=== PATIENT | male | born 1955 | race Caucasian/White ===

== ENCOUNTER 2019-06-11 09:35 | Day surgery (SDC) | payer OTHER ==
[2019-05-28 16:10] VITALS: BMI 28.7
[2019-06-11] MEDS ORDERED: MIDAZOLAM HCL 2 MG/2 ML SINGLE DOSE VIAL ONE (11:01)
[2019-06-11] MEDS ORDERED: ROPIVACAINE HCL 0.5% 30ML VIAL ONE (11:01)
[2019-06-11] MEDS ORDERED: BUPIVACAINE HCL 0.25% 125 MG/50 ML VIAL ONE (11:02)
[2019-06-11] MEDS ORDERED: ROCURONIUM BROMIDE 50 MG/5 ML SYRINGE ONE (11:17)
[2019-06-11] MEDS ORDERED: SUCCINYLCHOLINE CHLORIDE 200 MG/10 ML SYRINGE ONE (11:17)
[2019-06-11] MEDS ORDERED: PROPOFOL 20 ML ONE ×3 (11:51→12:37)
[2019-06-11] MEDS ORDERED: ACETAMINOPHEN 325 MG TABLET (FP) PO PRN (14:28)
[2019-06-11] MEDS ORDERED: ONDANSETRON 4 MG/2 ML VIAL IVPUSH PRN (14:28)
[2019-06-11 15:38] VITALS: BP 145/75; PULSE 61; TEMP 97.5
--- NOTE | 2019-06-12 14:10 | OP ---
DATE OF OPERATION: 06/11/2019 PREOPERATIVE DIAGNOSES: 1. Right wrist radiocarpal arthrosis. 2. Right wrist distal radioulnar joint arthrosis. POSTOPERATIVE DIAGNOSES: 1. Right wrist radiocarpal arthrosis. 2. Right wrist distal radioulnar joint arthrosis. OPERATIVE PROCEDURES: 1. Right wrist proximal row carpectomy. 2. Right wrist distal ulna partial resection. 3. Right wrist radial styloidectomy. 4. Right wrist posterior interosseous neurectomy with partial wrist denervation. SURGEON: Justin Rodriguez MD SPRUE KNOCKER: INEZ Juarez ANESTHESIA: Regional. COMPLICATIONS: None. ESTIMATED BLOOD LOSS: Minimal. INDICATION FOR PROCEDURE: The patient is a 63-year-old with persistent findings as above, indicated for operative treatment. Risks, benefits, and alternatives were discussed with him at length, and proper informed consent was obtained. DESCRIPTION OF PROCEDURE: After proper identification of patient and correct operative site, he was brought to the operating room and placed supine on the operating table. All prominences were well padded. Regional anesthesia was given. Sedation was given. Right upper extremity was prepped and draped in usual sterile fashion. Well-padded tourniquet was placed over the sterile prep. A longitudinal incision made over the dorsal aspect of the wrist in line with the 3rd metacarpal. Incision was taken sharply through the skin, with blunt and sharp dissection through the subcutaneous tissues. The 3rd dorsal compartment was divided, and the extensor pollicis longus was transposed and left transposed during the procedure and postoperatively. The 2nd and 4th dorsal compartments were elevated off the distal radius and distal radial and ulnar joints. A distally-based capsulotomy was performed at the wrist joint. Severe arthrosis of the radiocarpal joint was noted with severe entrapment of the lunate bone. Using sharp subperiosteal dissection, the scaphoid, lunate, and triquetrum were removed from the wrist. Care was taken to preserve the volar radiocarpal ligaments. The capitate head was found to have excellent articular surface. The distal radius lunate facet was also found to have satisfactory articular surface with some mild arthrosis. Once this was allowed to set in, x-rays were taken, confirming joint congruity. The TFCC was found to be torn and was debrided, and the distal radioulnar joint capsule was opened. Severe arthrosis of the distal radial joint was noted, and a matched distal ulna resection was performed. Once this was performed, the wrist was taken through a full pronation and supination range of motion, and there was no evidence of impingement or instability. The wrist was taken through also radial deviation and ulnar deviation and found to have some impingement on the radial styloid. Therefore, radial styloidectomy was performed at this time. Care was taken to preserve again the volar radiocarpal ligaments. The dorsal wrist capsule was repaired, and the distal radioulnar joint capsule was repaired. Wrist was taken through range of motion and found to have no impingement or blocks. This included pronation and supination. The 4th dorsal compartment was opened and a posterior interosseous neurectomy was performed by resecting a small section of this nerve. The extensor retinaculum was repaired, and the skin was repaired in layers. Sterile dressings and splint were placed. Final x-rays were taken prior to placing the splint, which showed proper position of the proximal row carpectomy and distal ulnar resection. Patient was reversed from anesthesia and brought to recovery in stable condition. He tolerated the procedure well. Arnol Price was integral throughout this procedure. Procedure could not have been performed without a skilled operative clinical nursing assistant. Kira [id number]
== END 2019-06-11 15:30 | disposition home or self-care (01) ==
LOC: FASU 09:35
PROVIDERS: ATTEND Orthopaedic Surgery Hand Surgery
PROC: 0PBK0ZZ Excision of Right Ulna, Open Approach (ICD-10-PCS; 2019-06-11)
PROC: 0PBH0ZZ Excision of Right Radius, Open Approach (ICD-10-PCS; 2019-06-11)
PROC: 0PBM0ZZ Excision of Right Carpal, Open Approach (ICD-10-PCS; principal; 2019-06-11 11:49)
DX: M19.031 Primary osteoarthritis, right wrist (principal)
CPT/HCPCS: 73110-TC-RT-FY; 82962; 94760